=== PATIENT | male | born 1960 | race African-American/Black ===

== ENCOUNTER 2016-09-26 17:02 | Emergency (ER) | payer OTHER ==
[2016-09-26 17:29] LABS: BASOPHIL 0.9 % (0-2); EOSINOPHIL 5.5 % (0-5); HCT 45.4 % (42.0-52.0); HGB 15.1 g/dl (13.2-18.0); LYMPHOCYTE 41.9 % (15-48); MCH 29.6 pg (25.0-31.0); MCHC 33.3 g/dL (32.0-36.0); MONOCYTE 12.1 % (0-12); NEUTROPHIL 39.6 % (41-80); PLT 304 K/uL (150-400); RDW 14.6 % (11.5-14.0); WBC 5.9 K/uL (4.0-10.5)
[2016-09-26 17:43] LABS: INR 0.96 (0.9-1.2); PROTHROMBIN TIME 12.4 SECONDS (11.7-14.0); PTT 25.8 SECONDS (23.2-31.4)
[2016-09-26 17:53] LABS: ALBUMIN 4.3 g/dL (3.5-5.0); BILIRUBIN - TOTAL 0.3 mg/dL (0.1-1.0); CREATININE 0.8 mg/dL (0.7-1.2); MAGNESIUM 1.97 mg/dL (1.40-2.10); POTASSIUM 3.9 mmol/L (3.5-5.1); TOTAL PROTEIN 7.3 g/dL (6.4-8.3)
[2016-09-26 17:56] LABS: CKMB 1.13 ng/mL (0.97-4.94); MYOGLOBIN 21 ng/mL (26-65); PRO-BNP 30 pg/mL (0-125); TROPONIN T < 0.010 ng/mL
== END 2016-09-26 18:53 | disposition home or self-care (01) ==
LOC: FER 17:02
PROVIDERS: Emergency Medicine
DX: R07.89 Other chest pain (principal); I25.810 Atherosclerosis of coronary artery bypass graft(s) without angina pectoris; Z95.1 Presence of aortocoronary bypass graft
CPT/HCPCS: 36415; 71010; 80053; 82550; 82553; 83735; 83874; 83880; 84484; 85025; 85610; 85730; 93005

== ENCOUNTER 2021-10-06 21:40 | Emergency (ER) | payer MEDICARE ==
[~2021-10-06 21:40] MED LIST: ADVIL200 M1 PO; ASPIRIN325 M1 PO; BACLOFEN 10MG T10 MG PO; CARAFATE1 GM PO; COREG12.5 MG PO; FLEXERIL10 MG PO; LASIX40 MG PO; NAPROXEN500 MG PO; NITROQUIK SL0.4 MG SL; PANTOPRAZOLE SO40 MG PO; PROTONIX 40MG T40 MG PO; REPATHA SU140 MG/1 M SC; [UNRECOGNIZED DRUG - OTHER] PO; [UNRECOGNIZED DRUG - OTHER] PO
[2021-10-06 22:48] LABS: BASOPHIL 0.7 % (0-2); EOSINOPHIL 4.9 % (0-5); HCT 46.4 % (42.0-52.0); LYMPHOCYTE 43.5 % (15-48); MCHC 32.3 g/dL (32.0-36.0); MCV 89.6 fL (78.0-100.0); MONOCYTE 7.5 % (0-12); MPV 10.2 fL (6.0-9.5); NEUTROPHIL 43.3 % (41-80); NRBC 0; RBC 5.18 M/uL (4.70-6.00); WBC 7.3 K/uL (4.0-10.5)
[2021-10-06 22:59] LABS: INR 0.93 (0.9-1.2); PROTHROMBIN TIME 11.9 SECONDS (11.8-13.4); PTT 21.5 SECONDS (24.4-34.7)
[2021-10-06 23:01] LABS: D-DIMER 0.28 ug/mLFEU (0.00-0.41)
[2021-10-06 23:08] LABS: BUN/CREAT RATIO (CALC) 12.7 RATIO; CREATININE 0.71 mg/dL (0.67-1.17)
[2021-10-06 23:16] LABS: PLT 231 K/uL (150-400)
== END 2021-10-07 00:19 | disposition home or self-care (01) ==
LOC: FER 21:40
PROVIDERS: Nurse Practitioner Family
DX: S20.211A Contusion of right front wall of thorax, initial encounter (principal); F10.129 Alcohol abuse with intoxication, unspecified; I10 Essential (primary) hypertension; W19.XXXA Unspecified fall, initial encounter; Y90.6 Blood alcohol level of 120-199 mg/100 ml
CPT/HCPCS: 36415; 71101; 80048; 84484; 85025; 85379; 85610; 85730; 93005; G0480